=== PATIENT | female | born 1980 | race Two or more races ===

== ENCOUNTER 2021-09-19 10:01 | Outpatient (CLI) | payer OTHER | END 2021-09-19 10:35 | disposition home or self-care (01) | LOC: LAB 10:01 | PROVIDERS: ATTEND General Practice | DX: I10 Essential (primary) hypertension (principal); E78.00 Pure hypercholesterolemia, unspecified; Z18.11 Retained magnetic metal fragments; E03.9 Hypothyroidism, unspecified ==

== ENCOUNTER 2022-09-03 08:55 | Outpatient (CLI) | payer OTHER | END 2022-09-03 09:01 | disposition home or self-care (01) | LOC: MAMO-SONO 08:55 | PROVIDERS: ATTEND Internal Medicine | DX: N63.0 Unspecified lump in unspecified breast (principal); N63.11 Unspecified lump in the right breast, upper outer quadrant; N63.42 Unspecified lump in left breast, subareolar ==

== ENCOUNTER 2022-09-27 08:23 | Outpatient (CLI) | payer OTHER | END 2022-09-27 08:24 | disposition home or self-care (01) | LOC: LAB 08:23 | DX: D64.89 Other specified anemias (principal); E78.49 Other hyperlipidemia; E07.89 Other specified disorders of thyroid; N39.0 Urinary tract infection, site not specified; M25.50 Pain in unspecified joint; R73.09 Other abnormal glucose; E56.8 Deficiency of other vitamins; D51.8 Other vitamin B12 deficiency anemias; E55.9 Vitamin D deficiency, unspecified; Z12.11 Encounter for screening for malignant neoplasm of colon; D50.9 Iron deficiency anemia, unspecified ==

== ENCOUNTER 2023-05-30 10:10 | Outpatient (CLI) | payer OTHER ==
[2023-05-30 10:55] LABS: HEMATOCRIT 34.8 % (36.0-45.00); HEMOGLOBIN 11.7 g/dL (12.0-15.00); MEAN CELL VOLUME 77.1 fL (80.00-100.00); MEAN CORPUSCULAR HEMOGLOBIN 25.9 pg (27.00-32.0); MEAN CORPUSCULAR HGB CONC 33.6 g/dl (32.0-36.0); PLATELET COUNT 362 K/uL (150-450); RED BLOOD COUNT 4.51 M/uL (4.00-6.00); RED CELL DISTRIBUTION WIDTH 14.5 % (11.5-14.5)
[2023-05-30 11:37] LABS: ALBUMIN 3.7 gm/dL (3.4-5.0); BILIRUBIN TOTAL 0.37 mg/dL (0.3-1.2); CALCIUM 8.7 mg/dL (8.5-10.1); CHOL HDL RATIO 3.6 (0-5.0); CREATININE SERUM 0.64 mg/dL (0.55-1.02); FREE TRIODOTIRONINE 2.49 pg/ml (2.18-3.98); GFR 101.28; GLOBULINA 3.9 G/DL (2.4-3.5); POTASSIUM 3.89 mEq/L (3.5-5.1); T4 TOTAL 9.86 UG/DL (4.8-13.9); TOTAL PROTEIN 7.6 gm/dL (6.4-8.2); TSH 1.45 uIU/mL (0.358-3.74)
[2023-06-01 11:09] LABS: CORTISOL 13.25 ug/dl; VITAMIN D3 25 HYDROXY 30.54 ng/ml (30-120)
== END 2023-05-30 10:14 | disposition home or self-care (01) ==
LOC: LAB 10:10
DX: M81.0 Age-related osteoporosis without current pathological fracture (principal); E85.9 Amyloidosis, unspecified; E63.9 Nutritional deficiency, unspecified; E07.9 Disorder of thyroid, unspecified; E03.9 Hypothyroidism, unspecified; E55.9 Vitamin D deficiency, unspecified; E11.9 Type 2 diabetes mellitus without complications; R80.9 Proteinuria, unspecified; Z12.11 Encounter for screening for malignant neoplasm of colon; R97.8 Other abnormal tumor markers

== ENCOUNTER 2024-04-13 08:18 | Outpatient (CLI) | payer OTHER | END 2024-04-13 08:22 | disposition home or self-care (01) | LOC: SONOGRAMA 08:18 | PROVIDERS: ATTEND Obstetrics & Gynecology | DX: N92.6 Irregular menstruation, unspecified (principal) ==

== ENCOUNTER → 2024-05-12 | Outpatient (CLI) | payer OTHER ==
[2024-05-12 09:19] LABS: URINE APPEARANCE Clear; URINE BILIRRUBIN Negative (NEGATIVE); URINE BLOOD Moderate; URINE COLOR Yellow; URINE GLUCOSE Negative (NEGATIVE); URINE KETONE Negative (NEGATIVE); URINE LEUKOCYTE Small; URINE NITRATE Positive; URINE PROTEIN Negative (NEGATIVE); URINE UROBILINOGEN 0.2 E.U./dl
[2024-05-12 09:20] LABS: URINE EPITHELIAL CELLS 10.3 uL (0.0-38.8); URINE RBC 14.9 uL (0.0-20.8); URINE WBC 107.4 uL (0.0-23.2)
[2024-05-12 09:27] LABS: HEMATOCRIT 36.1 % (36.0-45.00); HEMOGLOBIN 12.2 g/dL (12.0-15.00); MEAN CELL VOLUME 78.7 fL (80.00-100.00); MEAN CORPUSCULAR HEMOGLOBIN 26.6 pg (27.00-32.0); MEAN CORPUSCULAR HGB CONC 33.7 g/dl (32.0-36.0); PLATELET COUNT 271 K/uL (150-450); RED BLOOD COUNT 4.58 M/uL (4.00-6.00); RED CELL DISTRIBUTION WIDTH 14.5 % (11.5-14.5)
[2024-05-12 09:28] LABS: URINE BACTERIA > 9821.5 uL (0.0-1933)
[2024-05-12 10:19] LABS: BILIRUBIN TOTAL 0.6 mg/dL (0.3-1.2); CALCIUM 8.7 mg/dL (8.5-10.1); CHOL HDL RATIO 2.2 (0-5.0); CREATININE SERUM 0.66 mg/dL (0.55-1.02); GFR 97.29; GLOBULINA 3.8 G/DL (2.4-3.5); POTASSIUM 4.07 mEq/L (3.5-5.1); T4 TOTAL 10.55 UG/DL (4.8-13.9); TOTAL PROTEIN 7.8 gm/dL (6.4-8.2); TSH 2.88 uIU/mL (0.358-3.74)
== END | disposition home or self-care (01) ==
LOC: LAB 08:48
DX: Z00.00 Encounter for general adult medical examination without abnormal findings (principal)

== ENCOUNTER 2025-01-12 08:09 | Outpatient (CLI) | payer OTHER | END 2025-01-12 08:12 | disposition home or self-care (01) | LOC: SONOGRAMA 08:09 | PROVIDERS: ATTEND Obstetrics & Gynecology | DX: E07.9 Disorder of thyroid, unspecified (principal); N63.0 Unspecified lump in unspecified breast ==

== ENCOUNTER → 2025-06-07 10:00 | Outpatient (CLI) | payer OTHER | END | disposition home or self-care (01) | LOC: SONOGRAMA 10:00 | PROVIDERS: ATTEND Obstetrics & Gynecology | DX: R10.20 Pelvic and perineal pain unspecified side (principal); I10 Essential (primary) hypertension; E11.8 Type 2 diabetes mellitus with unspecified complications; D64.89 Other specified anemias; E78.49 Other hyperlipidemia; N39.0 Urinary tract infection, site not specified; R80.8 Other proteinuria; M25.50 Pain in unspecified joint; R79.82 Elevated C-reactive protein (CRP); E83.51 Hypocalcemia; E83.52 Hypercalcemia ==